=== PATIENT | female | born 2000 | race African-American/Black ===

== ENCOUNTER 2021-12-18 19:28 | Emergency (ER) | payer OTHER | END 2021-12-18 23:23 | disposition home or self-care (01) | LOC: ER 19:28 | DX: O98.512 Other viral diseases complicating pregnancy, second trimester (principal); Z3A.16 16 weeks gestation of pregnancy; A49.3 Mycoplasma infection, unspecified site; J06.9 Acute upper respiratory infection, unspecified; Z20.822 Contact with and (suspected) exposure to COVID-19; Z88.0 Allergy status to penicillin ==

== ENCOUNTER 2022-06-01 07:29 | Inpatient (IN) | payer OTHER ==
[~2022-06-01] VITALS: Ht 152.4 cm; Wt 3.6 kg
[~2022-06-01 07:29] MED LIST: PRENATAL + DHA1 EAC1 PO; ZITHROMAX200 MG PO
== END 2022-06-05 14:36 | disposition home or self-care (01) | DRG 787 ==
LOC: O/R 07:29 → OB/GYN 07:29 → LDR 07:29 → O/R 06-02 10:23 → OB/GYN 06-02 11:40
PROVIDERS: ADMIT Obstetrics & Gynecology; ATTEND Obstetrics & Gynecology
PROC: 3E0P7VZ Introduction of Hormone into Female Reproductive, Via Natural or Artificial Opening (ICD-10-PCS; 2022-06-01)
PROC: 4A1HXCZ Monitoring of Products of Conception, Cardiac Rate, External Approach (ICD-10-PCS; 2022-06-01)
PROC: 3E033VJ Introduction of Other Hormone into Peripheral Vein, Percutaneous Approach (ICD-10-PCS; 2022-06-02)
PROC: 10D00Z1 Extraction of Products of Conception, Low, Open Approach (ICD-10-PCS; principal; 2022-06-02 13:45)
PROC: 30233N1 Transfusion of Nonautologous Red Blood Cells into Peripheral Vein, Percutaneous Approach (ICD-10-PCS; 2022-06-03)
DX: O61.0 Failed medical induction of labor (principal); O42.02 Full-term premature rupture of membranes, onset of labor within 24 hours of rupture; D62 Acute posthemorrhagic anemia; O72.1 Other immediate postpartum hemorrhage; O67.8 Other intrapartum hemorrhage; O99.02 Anemia complicating childbirth; Z3A.40 40 weeks gestation of pregnancy; Z37.0 Single live birth; Z20.822 Contact with and (suspected) exposure to COVID-19